=== PATIENT | female | born 1990 | race Caucasian/White ===

== ENCOUNTER 2017-07-26 05:27 | Inpatient (IN) | payer OTHER ==
[2017-07-26] MEDS ORDERED: Acetaminophen 500 MG TAB ONE (06:48)
[2017-07-26] MEDS ORDERED: diphenhydrAMINE 50 MG/ML VIAL ONE ×2 (06:48→07:34)
[2017-07-26] MEDS ORDERED: Haloperidol Lactate 5 MG/ML VIAL ONE (06:48)
[2017-07-26] MEDS ORDERED: Dexamethasone 10 MG/ML VIAL ONE ×2 (06:48→11:49)
[2017-07-26] MEDS ORDERED: Magnesium Sulfate 2 GM/100 ML BAG ONE (06:48)
[2017-07-26 06:55] LABS: #Lymphocytes 1.7 thou/uL (1.20-3.40); #Monocytes 0.7 thou/uL (0.11-0.59); #Neutrophils 5.1 thou/uL (1.40-6.50); %Eosinophils 0.2 % (0.0-10.0); %Lymphocytes 22.9 % (21.0-51.0); %Monocytes 8.6 % (0.0-10.0); %Neutrophils 68.2 % (42.0-75.0); Hemoglobin 13.1 g/dL (12.0-16.0); Mean Corpuscular HGB CONC 33.2 g/dL (32.0-36.0); Mean Corpuscular Hemoglobin 29.3 pg (27.0-31.0); Mean Corpuscular Volume 88.3 fl (81.0-99.0); Mean Platelet Volume 6.9 fL (7.4-10.4); Platelet Count 296 thou/uL (130-400); Red Blood Cell (RBC) Count 4.48 mill/uL (4.20-5.40); White Blood Cell (WBC) Count 7.5 thou/uL (4.8-10.8)
[2017-07-26 07:16] LABS: ALT (SGPT) 16 U/L (8-55); AST (SGOT) 13 U/L (5-34); Albumin 4.2 g/dL (3.5-5.0); Alkaline Phosphatase 80 U/L (40-150); Anion Gap 13 mmol/L (10-20); BUN (Urea Nitrogen) 6 mg/dL (7.0-18.7); Bilirubin, Total 0.4 mg/dL (0.2-1.2); Calc. Creatinine Clearance 0 mL/min (70-130); Calcium 9.5 mg/dL (7.8-10.44); Carbon Dioxide 22 mmol/L (22-29); Chloride 108 mmol/L (98-107); Estimated GFR-MDRD 82; Globulin 2.7 g/dL (2.4-3.5); Glucose 104 mg/dL (70-105); Potassium 3.9 mmol/L (3.5-5.1); Protein, Total 6.9 g/dL (6.0-8.3); Sodium 139 mmol/L (136-145)
--- NOTE | 2017-07-26 08:29 | CT ---
PRELIMINARY REPORT/[facility]/EMERGENCY AFTER HOURS PROCEDURE: EXAM: CT Head Without Intravenous Contrast CLINICAL HISTORY: 26 years old, female; Pain; Headache; Headache not specified; Patient HX: F26 presents to ed for head ache. Pt reports gradual onset of headache x2 days and reports she was seen at both [facility] and [facility] er. Pt reports pain has been fairly constant although she reports pain was mos tly relieved while at the er but then worsened again around 11pm. Pt reports vomiting x2. Pt denies f ever or rash. Pt reports taking 2 fiorecet at home but reports no relief. Pt reports drinking about 1 drink/day. Pt denies smoking and denies any drug use. ; Additional info: Pt was shielded duri ng exam TECHNIQUE: Axial computed tomography images of the head/brain without intravenous contrast. COMPARISON: No relevant prior studies available. FINDINGS: Brain: Unremarkable. No hemorrhage. No significant white matter disease. No edema. Ventricles: Normal. Bones/joints: Unremarkable. No acute fracture. Soft tissues: Unremarkable. Sinuses: Unremarkable. Mastoid air cells: Unremarkable. No mastoid effusion. IMPRESSION: No evidence of acute intracranial abnormality. Thank you for allowing us to participate in the care of your patient. Dictated and Authenticated by: Cristian Hernandez MD 07/26/2017 7:41 AM Central Time ([place] & [place]) FINAL REPORT EMERGENT AFTER HOURS CT OF BRAIN PERFORMED WITHOUT CONTRAST ENHANCEMENT: HISTORY: Headache. FINDINGS: The ventricular and cisternal system is within normal limits. There are no signs of intracerebral he morrhage or extraaxial fluid collections. The mastoid air cells and visualized sinuses are clear. IMPRESSION: 1. No acute intracranial abnormalities. 2. This report is in agreement with the temporary report issued by [facility]. POS: [facility]
[2017-07-26] MEDS ORDERED: Lidocaine 1% w/Epinephrine 1:100K 20 ML VIAL ONE (09:18)
[2017-07-26 11:16] LABS: CSF Source CSF; Clarity Clear (Clear); RBC Count - Manual 708 /cumm (None Seen); Tube # 4; WBC/NonHematics Count - Manual 115 /cumm (0-5)
[2017-07-26 11:31] LABS: Cell Count Non Hematic 13 %; Eosinophils 1 %; Lymphocytes 42 %; Segmented Neutrophils 43 %
[2017-07-26] MEDS ORDERED: Sodium Chloride 0.9% 100 ML ONE (11:49)
[2017-07-26] MEDS ORDERED: cefTRIAXone\\ROCEPHIN 2 GM VIAL ONE (11:49)
[2017-07-26] MEDS ORDERED: Doxycycline 100 MG CAP PO SCH (12:15)
[2017-07-26] MEDS ORDERED: Vancomycin HCl 1.5 GM in Sodium Chloride 0.9% 250 ML 300 ML IVPB SCH (12:15)
[2017-07-26] MEDS ORDERED: Acyclovir Sodium 800 MG in Sodium Chloride 0.9% 250 ML 250 ML IVPB SCH (12:30)
[2017-07-26] MEDS ORDERED: Ondansetron HCl/PF 4 MG/2 ML Vial IVP PRN (12:53)
[2017-07-26] MEDS ORDERED: Acetaminophen 325 MG TAB PO PRN (12:54)
[2017-07-26] MEDS ORDERED: Ondansetron ODT 4 MG TAB PO PRN (12:54)
[2017-07-26 13:00] VITALS: BMI 30.4
[2017-07-26] MEDS ORDERED: Milk Of Magnesia 30 ML UDCUP PO PRN (15:13)
[2017-07-26] MEDS ORDERED: Morphine 4 MG/ML VIAL SLOW IVP PRN (15:45)
[2017-07-26] MEDS ORDERED: Fioricet 325/50/40 mg Tablet PO PRN (16:17)
--- NOTE | 2017-07-26 16:49 | HP ---
DATE OF ADMISSION: 07/26/2017 CHIEF COMPLAINT: Intractable headache. HISTORY OF PRESENT ILLNESS: This is a 26-year-old white female with no known past medical history ex cept for depression and anxiety. She was in her usual state of health until 3 days ago. On Sunday, she developed a sudden onset of headache. It was excruciating headache which started behind the eyes and was progressively worse with no associated vision losses and associated with severe nausea and v omiting and no fever. She went to [facility] where she had a CT scan which was unremarkable and patient was sent home with Fioricet. Patient has been taking Fioricet for the past 3 days and wi th poor response and with worsening headache, she decided to come to the ER today. When patient pres ented to the ER, she had severe headache and was having some neck stiffness and had low grade fever o f 100.1. In the ER, she had a lumbar puncture done following CT, which showed an evidence of white c ells in the CSF along with red blood cells and also mildly elevated protein. With high suspicion for meningitis, patient was started on IV antibiotics in the ER with vancomycin and Rocephin 2 grams and doxycycline. The patient was seen on the floor. She was alert and oriented. Did not appears to be in any acute distress. She was able to move her head to the sides and was able to touch the chin an d with no evidence of any neck stiffness was noted. She denied having any sick contacts, but she did admit to going to camping sites 2 weeks ago, but she did not notice any ticks on her skin. The dominga ent has a [id number] and she used to breastfeed until 2 months ago. The patient denies having any rash on the skin, but she does admit to having some bruises which start ed appearing since a week ago, more on the extremities. Patient denies having any shortness of breath, no cough. She does have some occasional cough which d oes causes worsening of her headache. She denies having any earaches. She denies having any carious tooth. She does wear glasses and she does not feel that her vision is being affected. PAST MEDICAL HISTORY: None. ALLERGIES: None. SOCIAL HISTORY: The patient is not a nonsmoker. She does drink alcohol occasionally. The last drin k was on Sunday. She had a glass of wine. Otherwise, no history of any illicit drug use. No histor y of any sexually transmitted infections. FAMILY HISTORY: No significant family history of coronary artery disease. There were no premature d eaths in the family. REVIEW OF SYSTEMS: All 12 systems reviewed with the patient thoroughly and found to be negative. Sy stems reviewed are HEENT, CVS, REIMBURSEMENT CONSULTANT, respiratory, GI, . All systems are reviewed and found to be ne gative except the ones described in HPI. The following complete review of systems was negative, unless otherwise mentioned in the HPI or below: Constitutional: Weight loss or gain, sense of well-being, ability to conduct usual activities, exerc ise tolerance. Skin/Breast: Rash, itching, changes in hair growth or loss, nail changes, breast lumps, tenderness, swelling, nipple discharge. Eyes: Vision, double vision, tearing, blind spots, pain. ENT/Mouth: Headaches (location, time of onset, duration, precipitating factors), vertigo, lightheadedness, injury. Vision, double vision, tearing, blind spots, pain, nose b leeding, colds, obstruction, discharge, dental difficulties, gingival bleeding, dentures, neck stiffn ess, pain, tenderness, masses in thyroid or other areas Cardiovascular: Precordial pain, substernal distress, palpitations, syncope, dyspnea on exertion, or thopnea, nocturnal paroxysmal dyspnea, edema, cyanosis, hypertension, heart murmurs, varicosities, ph lebitis, claudication. Respiratory: Pain, shortness of breath, wheezing, stridor, cough, hemoptysis, fever or night sweats Gastrointestinal: Poor appetite, dysphagia, indigestion, abdominal pain, heartburn, eructation, naus ea, vomiting, hematemesis, jaundice, constipation, or diarrhea, abnormal stools (kelly-colored, tarry, bloody, greasy, foul smelling), flatulence, hemorrhoids, recent changes in bowel habits. Genitourinary: Urgency, frequency, dysuria, nocturia, hematuria, polyuria, oliguria, unusual (or evelin nge in) color of urine, stones, hesitancy, change in size of stream, dribbling, acute retention or in continence, libido, potency. Musculoskeletal: Pain, swelling, redness or heat of muscles or joints, limitation, of motion, muscular weakness, atrophy, cramps. Neurologic/Psychiatric: Convulsions, paralyses, tremor, incoordination, parasthesias, difficulties w ith memory of speech, sensory or motor disturbances, or muscular coordination (ataxia, tremor), emoti onal problems, anxiety, depression, previous psychiatric care, unusual perceptions, hallucinations. Allergy/Immunologic: Skin rash, anemia, bleeding tendency, polydipsia, polyuria, intolerance to heat or cold. ALLERGIES: METOCLOPRAMIDE, PROMETHAZINE NUTS. HOME MEDICATIONS: Bupropion 300 mg p.o. daily, buspirone 15 mg p.o. b.i.d., and Fioricet 1 tablet p. o. q.6 hours. PHYSICAL EXAMINATION: VITAL SIGNS: Blood pressure 112/59, heart rate is 92, respiratory rate 18, saturation 95%, temperatu re 98.5. GENERAL: The patient is seen lying in the bed supine, does not appear to be in no acute distress. HEENT: Atraumatic, normocephalic, PERRLA. Extraocular muscles intact. Oral mucosa is pink and moist . CARDIOVASCULAR: S1, S2 normal. No murmurs, rubs or gallops. LUNGS: Bilateral air entry was equal. No wheezing, no crackles. NECK: No thyromegaly, no JVD. No neck stiffness. No spinal tenderness was noted. All the frontal and maxillary sinuses were palpated and was negative. ABDOMEN: Soft, nontender, no guarding, no rebound tenderness. Bowel sounds normal. MUSCULOSKELETAL: No calf tenderness. No pedal edema. No joint tenderness, no joint swelling. SKIN: No cyanosis or erythema, no rash, no pallor except some bruises are noted on the lower extremi ties. No rash. PSYCHIATRIC: No signs of suicidal ideation. No signs of lourdes. No signs of depression were noted. LABORATORY DATA: WBC 7.5, hemoglobin is 13.1, hematocrit is 39.6, platelets 296. Sodium 139, potass ium 3.9, chloride 102, bicarbonate 22, BUN is 6, creatinine 0.84. CSF analysis was done. CSF showed colorless fluid, clear in clarity and WBCs of 115, RBC of 708 with neutrophil percentage of 43% and total protein of 48. Pending fluid culture. ASSESSMENT: 1. Possible atypical meningitis. 2. Intractable headache, possible migraine. 3. Moderate dehydration. PLAN: 1. Plan is to closely monitor this patient. Suspicion for meningitis is very low because of the pat ient's presentation and lack of any meningismus signs, but we will start the patient empirically on I V antibiotics with Rocephin 2 grams q.12 hours #2 with vancomycin 1.5 grams to be dosed by pharmacy. Keep the trough between 15-20. 2. We will add doxycycline to cover atypical bacteria for tick related diseases. 3. We will start the patient on IV fluids at 100 mL hour. We will closely monitor the patient for d evelopment of any fever. We sent for blood cultures. We will do a procalcitonin to look for any dianne dence of bacterial invasion and we will do CRP to look for evidence of inflammation. 4. Intractable headache. The patient will be started on morphine for headache 4 mg q.4 hours p.r.n. We will continue her home medications. 5. Deep venous thrombosis prophylaxis with Lovenox. I spent 75 minutes with this patient.
[2017-07-26] MEDS: Sodium Chloride 0.9% 1,000 ML IV SCH (16:52)
[2017-07-26] MEDS: HYDROcodone/Acetaminophen 5/325 mg Tablet PO PRN (17:45)
[2017-07-26 20:06] LABS: HIV (1/2) Antibody/Antigen Non-Reactive (NonReactive); HIV 1/2 INDEX 0.14 S/CO (<1.00)
[2017-07-26 20:13] LABS: Lactic Acid 1.6 mmol/L (0.5-2.2)
--- NOTE | 2017-07-26 20:22 | CON ---
DATE OF CONSULTATION: 07/26/2017 REASON FOR CONSULTATION: Meningitis. HISTORY OF PRESENT ILLNESS: A 26-year-old who has history of prior ectopic and in her [facility] until about 3 days before when she developed headaches. It was treated in [facility] without improvement and up in the emergency room at [facility] released after CT scan was normal on Symptomatic medication which did not lead to improvement, ended up in [facility] and at this time, she was admitted after a spinal tap was done. She had [place] , had some mosquito bites. She had low grade temperature elevation. No visual symptom s, no sore throat, odynophagia, dysphagia. A little what she describes as a pimple behind the right ear which she tried to scratch and squeeze, but no earache or drainage. No toothache, no nasal sympt oms. A little bit of neck stiffness. No cough or sputum production or chest pain, no abdominal pain or diarrhea. No genitourinary symptoms, no joint symptoms. No skin disorder. PAST MEDICAL HISTORY: Tubal and she had had a D&C for missed . ALLERGIES: None. 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 Never a smoker, no drug use. FAMILY HISTORY: Noncontributory. Her son had had otitis media recently diagnosed. PHYSICAL EXAMINATION: VITAL SIGNS: T-max 98.7, blood pressure 123/75, pulse 98, respirations 18, O2 sat 96%. GENERAL: Appears no distress. The symptoms have improved markedly since admission. She has very sm all ulcerated area behind the left ear. No lymphadenopathy. HEENT: Ocular movements conjugate. Sclerae white. Pupils are equal. Nasal passages patent. Oral cavity moist, quite a few teeth in place in good shape. NECK: Supple, no jugular vein distention. LUNGS: Symmetrically breath sounds. BACK: Mild tenderness in the lower back area at the site of the spinal tap. ABDOMEN: No abdominal abnormalities noted in the examination. NEUROLOGIC: No joint inflammatory changes. Strength in upper and lower extremities is 5/5. Cogniti ve function appears to be intact. LABORATORY AND X-RAY FINDINGS: CSF showed 115 WBC, 708 RBCs, 43% neutrophils, 42% lymphocytes, gluco se of 57, protein 57. White cell count 7.5; hemoglobin 13; platelets 296 with a normal differential; monocytosis, slight. Chemistry with a chloride 108, other findings of lactic acid 2.5. Liver profi le normal. Procalcitonin less than 0.02. A brain CT with no findings of significance. ASSESSMENT: Aseptic meningitis following camping trip. DISCUSSION: Differential diagnosis includes viral meningitis, either from arthropod-borne viruses ibanez ch as West Nile or enteroviruses or herpes simplex, intracellular bacteria including rickettsia, ehrl ichia and Anaplasma less likely, since patient has no evidence of thrombocytopenia. Submitted jerrod naylor. If the patient is better by tomorrow, then consider discharge planning. She may have post-spi nal tap headaches since they attempted multiple times and before they were able to get a sample. I d o not think there is a concern regarding HIV infection in this case, but we will go ahead and check i t anyways.
[2017-07-26] MEDS: Famotidine 20 MG TAB PO SCH (21:48)
[2017-07-26] MEDS: busPIRone HCl 10 MG TAB PO SCH (21:48)
[2017-07-26] MEDS: Docusate 100 MG CAP PO SCH (21:48)
[2017-07-27] MEDS: cefTRIAXone\\ROCEPHIN 2 GM in Sodium Chloride 0.9% 100 ML IVPB SCH ×2 (01:47→11:38)
[2017-07-27] MEDS: Sodium Chloride 0.9% 1,000 ML IV SCH ×2 (03:43→11:38)
[2017-07-27 05:14] LABS: #Lymphocytes 2.5 thou/uL (1.20-3.40); #Monocytes 0.9 thou/uL (0.11-0.59); %Basophils 0.2 % (0.0-1.0); %Eosinophils 0.2 % (0.0-10.0); %Lymphocytes 33.8 % (21.0-51.0); %Monocytes 11.5 % (0.0-10.0); %Neutrophils 54.4 % (42.0-75.0); Hemoglobin 11.3 g/dL (12.0-16.0); Mean Corpuscular Hemoglobin 29.2 pg (27.0-31.0); Mean Corpuscular Volume 88.5 fl (81.0-99.0); Mean Platelet Volume 7.1 fL (7.4-10.4); Platelet Count 225 thou/uL (130-400); RBC Distribution Width 11.9 % (11.5-14.5); Red Blood Cell (RBC) Count 3.88 mill/uL (4.20-5.40); White Blood Cell (WBC) Count 7.4 thou/uL (4.8-10.8)
[2017-07-27 05:30] LABS: Anion Gap 10 mmol/L (10-20); BUN (Urea Nitrogen) 7 mg/dL (7.0-18.7); CRP (Inflammatory) Less than 0.50 mg/dL (= or < 0.5); Calc. Creatinine Clearance 172 mL/min (70-130); Calcium 8.3 mg/dL (7.8-10.44); Carbon Dioxide 23 mmol/L (22-29); Chloride 111 mmol/L (98-107); Estimated GFR-MDRD Greater than 90; Glucose 97 mg/dL (70-105); Potassium 3.6 mmol/L (3.5-5.1); Sodium 140 mmol/L (136-145)
[2017-07-27] MEDS: Famotidine 20 MG TAB PO SCH (08:36)
[2017-07-27] MEDS: Docusate 100 MG CAP PO SCH (08:36)
[2017-07-27] MEDS: busPIRone HCl 10 MG TAB PO SCH (08:36)
[2017-07-27] MEDS ORDERED: Bupropion 150 MG XL TAB PO SCH (09:00)
[2017-07-27] MEDS ORDERED: Enoxaparin Sodium 40 MG/0.4 ML SYRINGE SC SCH (09:00)
[2017-07-27] MEDS: HYDROcodone/Acetaminophen 5/325 mg Tablet PO PRN (10:00)
[2017-07-27 15:58] VITALS: BP 119/80; TEMP 98.1
--- NOTE | 2017-07-28 13:56 | DIS ---
DATE OF ADMISSION: 07/26/2017 DATE OF DISCHARGE: 07/27/2017 ADMITTING DIAGNOSES: Intractable headache with possible meningitis. DISCHARGE DIAGNOSIS: Atypical meningitis. SECONDARY DIAGNOSES: 1. Intractable headache, possible migraine. 2. Moderate dehydration. 3. History of depression. CONSULTATIONS: Yard Clerk involved in the care is Infectious Disease, Dr. Ha. HISTORY OF PRESENT ILLNESS AND HOSPITAL COURSE: In brief, this is a 26-year-old white female with no known past medical history except for depression. She presented to the hospital because of excrucia ting headache and she went to the ER at [facility] and had a CT of the head and was given Fioric et and sent home. Patient did return back to the ER with intractable headaches and had a low-grade f ever of 100.1. Suspicion for meningitis, the patient had a CSF analysis, which showed no evidence of elevated white count and increased protein, but with elevated red blood cells with a bloody tap. So , there is suspicion for atypical meningitis. The patient was admitted and started on Rocephin 2 gra ms, vancomycin, and acyclovir. Patient was seen by Infectious Disease, and based on the clinical exa m, the patient did not have neck rigidity or no worsening fevers. No rash. Because of her cramping history, it was suggested that the patient could have had a viral meningitis or atypical meningitis w ith ehrlichiosis. All of the tests were sent out, but the patient was asymptomatic and wanted to go home the following day, as her headache has improved. I advised the patient to continue on the Zelda cet and advised to continue on the doxycycline antibiotic at least for 10 more days and acyclovir als o for 10 more days and patient is discharged home in stable condition. PHYSICAL EXAMINATION: On the day of discharge, VITAL SIGNS: Blood pressures are 119/80, heart rate is 70, respiratory rate is 18, saturation 97%. CARDIOVASCULAR: S1 and S2 normal. No murmurs, no rubs, no gallops. LUNGS: Bilateral air entry was equal. No wheezing, no crackles. ABDOMEN: Soft, nontender. No guarding or rebound tenderness. NECK: No evidence of any neck rigidity was noted. SKIN: No rash, no erythema was noted. DISCHARGE MEDICATIONS: Patient will continue the acyclovir 400 mg p.o. t.i.d. for 5 more days and do xycycline 100 mg p.o. twice a day for 5 more days. DISCHARGE INSTRUCTIONS: 1. Continue activity as tolerated. 2. Advised to follow up with the primary care physician in 1 week, and if the patient's symptoms com e back with increase in neck rigidity and fever, advised to return back to the ER. 3. Follow up with Infectious Disease, Dr. Ha, in 1-2 weeks. 4. Advised a general diet. I spent 35 minutes with this patient on the day of discharge.
[2017-07-28 19:11] LABS: HSV 2 - DNA Negative (Negative)
[2017-07-30 13:15] LABS: West Nile Virus IgG Ab - CSF Negative (Negative); West Nile Virus IgM Ab - CSF Negative (Negative)
== END 2017-07-27 17:14 | disposition home or self-care (01) | DRG 99 ==
LOC: ERS 05:27 → OBSVTOIN 12:02 → 2SW 12:02 → T4-B 17:47
PROVIDERS: ADMIT Family Medicine; ATTEND Family Medicine
PROC: 009U3ZX Drainage of Spinal Canal, Percutaneous Approach, Diagnostic (ICD-10-PCS; principal; 2017-07-26)
DX: G03.0 Nonpyogenic meningitis (principal); E86.0 Dehydration; F41.9 Anxiety disorder, unspecified; F32.9 Major depressive disorder, single episode, unspecified; Z79.899 Other long term (current) drug therapy; Z91.018 Allergy to other foods; Z91.09 Other allergy status, other than to drugs and biological substances; G43.919 Migraine, unspecified, intractable, without status migrainosus
CPT/HCPCS: 36415; 62270; 70450; 80048; 80053; 82945; 83605; 84145; 84157; 85025; 85060; 86140; 86788; 86789; 87040; 87070; 87205; 87389; 87498; 87529; 89051; 96365; 96367; 96375; 96376; A4216; J0133; J0696; J1100; J1200; J1630; J1650; J2001; J3370; J3475; J7050

== ENCOUNTER 2017-08-26 16:20 | Emergency (ER) | payer OTHER ==
[2017-08-26] MEDS ORDERED: Fluorescein Opthalmic Strip ONE (16:33)
[2017-08-26] MEDS ORDERED: Proparacaine 0.5% Opth 15 ML BOT ONE (16:33)
[2017-08-26] MEDS ORDERED: Acetaminophen/Codeine 30-300mg Tablet ONE (17:04)
== END 2017-08-26 17:09 | disposition home or self-care (01) ==
LOC: ERS 16:20
DX: H20.9 Unspecified iridocyclitis (principal); K21.9 Gastro-esophageal reflux disease without esophagitis; F41.9 Anxiety disorder, unspecified; F32.9 Major depressive disorder, single episode, unspecified; Z79.899 Other long term (current) drug therapy
CPT/HCPCS: 99283

== ENCOUNTER 2018-10-07 13:14 | Day surgery (SDC) | payer OTHER ==
[2018-10-07 13:33] VITALS: BMI 31.6
[2018-10-07 14:53] LABS: Creatinine, Urine 50.42 mg/dL (47-110); Protein, Urine Random Quant Less than 10 mg/dL (1-14)
[2018-10-07 15:34] LABS: #Basophils 0.1 thou/uL (0.0-0.2); #Eosinphils 0.1 thou/uL (0.0-0.7); #Lymphocytes 2.1 thou/uL (1.20-3.40); #Neutrophils 6.5 thou/uL (1.40-6.50); %Basophils 0.7 % (0.0-1.0); %Eosinophils 0.8 % (0.0-10.0); %Monocytes 10.4 % (0.0-10.0); %Neutrophils 66.1 % (42.0-75.0); Hemoglobin 11.5 g/dL (12.0-16.0); Mean Corpuscular HGB CONC 34.2 g/dL (32.0-36.0); Mean Corpuscular Hemoglobin 30.1 pg (27.0-31.0); Mean Corpuscular Volume 88.1 fL (78.0-98.0); Mean Platelet Volume 8.4 fL (7.4-10.4); Platelet Count 296 thou/uL (130-400); RBC Distribution Width 11.3 % (11.5-14.5); Red Blood Cell (RBC) Count 3.81 mill/uL (4.20-5.40); White Blood Cell (WBC) Count 9.8 thou/uL (4.8-10.8)
[2018-10-07 15:55] LABS: AST (SGOT) 23 U/L (5-34); Anion Gap 13 mmol/L (10-20); BUN (Urea Nitrogen) 7 mg/dL (7.0-18.7); Calc. Creatinine Clearance 156 mL/min (70-130); Calcium 9.9 mg/dL (7.8-10.44); Carbon Dioxide 21 mmol/L (22-29); Chloride 108 mmol/L (98-107); Estimated GFR-MDRD Greater than 90; Glucose 71 mg/dL (70-105); Potassium 3.8 mmol/L (3.5-5.1); Sodium 138 mmol/L (136-145)
--- NOTE | 2018-10-07 17:05 | PRG ---
DATE OF SERVICE: 10/07/2018 OB ED note. TIME OF SERVICE: 16:30. PRESENTING COMPLAINT: Elevated blood pressures at 34 weeks with complicated , high risk. HISTORY OF PRESENT ILLNESS: Ms. Stanley is a 28-year-old G4, P1, at 34 and 1-week with TERRIE of 11/17/2018. She has a history one previous spontaneous vaginal delivery, one miscarriage, one ectopic. She has a that was originally seen Dr. Jordan Bernstein at [facility] [place]. However, has been complicated by clubfoot, possible craniofacial abnormality and spina bifida, lower lumbar. She has been following weekly at [facility] with the planned delivery at 38 weeks gestation. She was noted to have elevated blood pressure report today and was sent by [facility] for evaluation. She reports mild headache at work. She reports as headache is improved now. OB HISTORY: Type B positive, antibody negative, Pap negative, rubella immune, VDRL nonreactive, hepatitis B, GC, chlamydia negative, negative aneuploidy screening, negative 50 g. SURGICAL HISTORY: D and C and right salpingectomy as well as left ear surgery. PAST MEDICAL HISTORY: None. SOCIAL HISTORY: Denies tobacco, alcohol, or drug use. FAMILY HISTORY: Noncontributory. REVIEW OF SYSTEMS: Noncontributory. PHYSICAL EXAMINATION: GENERAL: White female, in no acute distress. VITAL SIGNS: Initial blood pressure of 140/78. Subsequent blood pressure is less than 140 systolic, less than 80 diastolic. HEENT: Within normal limits. LUNGS: Clear to auscultation bilaterally. HEART: Regular rate and rhythm. ABDOMEN: Soft and nontender. Fundal height 34 cm. FHTs 140s. Vulva without lesions. VAGINAL: Deferred. EXTREMITIES: No clubbing, cyanosis, or edema. LABORATORY DATA: Laboratory values include a hematocrit of 33%, normal platelet count at 296, normal creatinine at 0.73, normal AST at 23, and a urine protein ratio of less than 0.2. IMPRESSION: Elevated blood pressures at work at 34 weeks with high-risk with spina bifida. No evidence of preeclampsia or gestational hypertension on multiple values and greater than 2-hour observation on labor and delivery unit with normal laboratory findings. PLAN: Discharge home, keep scheduled followup with [facility] tomorrow and ER precautions. Job ID: [id number]
== END 2018-10-07 16:35 | disposition home health service (06) ==
LOC: L&D/OP 13:14
PROVIDERS: ATTEND Obstetrics & Gynecology
DX: O99.89 Other specified diseases and conditions complicating pregnancy, childbirth and the puerperium (principal); R03.0 Elevated blood-pressure reading, without diagnosis of hypertension; Q66.89 Other specified congenital deformities of feet; O09.893 Supervision of other high risk pregnancies, third trimester; O35.0XX0 Maternal care for (suspected) central nervous system malformation in fetus, not applicable or unspecified; Z87.59 Personal history of other complications of pregnancy, childbirth and the puerperium; Z3A.34 34 weeks gestation of pregnancy
CPT/HCPCS: 36415; 80048; 82570; 84156; 84450; 85025; 99283